=== PATIENT | female | born 1990 | race Caucasian/White ===

== ENCOUNTER → 2017-10-06 | Outpatient (CLI) | payer OTHER ==
[~2017-10-06] MED LIST: OXYC-57 PO; PRENCAP38 PO
== END | disposition home or self-care (01) ==
LOC: C.LABSPEC 17:13
PROVIDERS: ATTEND Obstetrics & Gynecology
DX: Z34.01 Encounter for supervision of normal first pregnancy, first trimester (principal)

== ENCOUNTER → 2017-10-10 | Outpatient (CLI) | payer OTHER ==
[2017-10-10 16:48] LABS: BASO % 0.2 %; BASO ABS # 0.02 K/uL (0-0.2); EOS ABS # 0.11 K/uL (0-0.5); HEMATOCRIT 36.3 % (37-47); HEMOGLOBIN 12.9 g/dL (12.0-16.0); IG# 0.04 K/uL (0.00-0.02); LYMPH % 19.6 %; LYMPH ABS # 2.15 K/uL (1.2-3.4); MEAN CELL VOLUME 91.9 fL (80-100); MEAN CORPUSCULAR HEMOGLOBIN 32.7 pg (25-34); MEAN CORPUSCULAR HGB CONC 35.5 g/dl (32-36); MEAN PLATELET VOLUME 10.5 fL (7.4-10.4); MONO % 7.7 %; MONO ABS # 0.84 K/uL (0.11-0.59); NEUT % 71.1 %; PLATELET COUNT 286 K/uL (130-400); RED CELL DISTRIBUTION WIDTH CV 12.7 % (11.5-14.5); RED CELL DISTRIBUTION WIDTH SD 43.1 fL (36.4-46.3); WHITE BLOOD COUNT 10.96 K/uL (4.8-10.8)
== END | disposition home or self-care (01) ==
LOC: C.LAB1850 15:28
PROVIDERS: ATTEND Obstetrics & Gynecology
DX: Z34.01 Encounter for supervision of normal first pregnancy, first trimester (principal)

== ENCOUNTER → 2017-10-10 | Outpatient (CLI) | payer OTHER | END | disposition home or self-care (01) | LOC: C.PAPS 09:28 | PROVIDERS: ATTEND Obstetrics & Gynecology | DX: Z12.4 Encounter for screening for malignant neoplasm of cervix (principal); R87.619 Unspecified abnormal cytological findings in specimens from cervix uteri ==

== ENCOUNTER → 2017-11-23 | Outpatient (CLI) | payer OTHER | END | disposition home or self-care (01) | LOC: C.LAB 17:25 | PROVIDERS: ATTEND Obstetrics & Gynecology | DX: Z34.02 Encounter for supervision of normal first pregnancy, second trimester (principal) ==

== ENCOUNTER 2020-04-16 23:41 | Inpatient (IN) ==
[2020-04-17] MEDS ORDERED: OXYTOCIN 30 UNITS/500 ML BAG IV PRN ×2 (00:10→02:55)
--- NOTE | 2020-04-17 00:21 | History & Physical Report ---
Date of Service April 17, 2020 Assessment & Plan (1) membranes, spontaneous rupture: IUP at 40 weeks with SPROM and spontaneous onset of contractions. Patient wishes to Type & screen ordered will want epidural when more active History of Present Illness Primary Care Provider: Nba Almeida MD Patient is a 30 yo EDC 04/16/20 who presents with leaking fluid intermittently since 1999 tonight. some contractions but not regular yet. GBS negative, blood type O positive. complicated by prior for arrest of descent after pushing for 2+ hours. Allergies Allergy/AdvReac Type Severity Reaction Status Date / Time No Known Allergies Allergy Verified 04/14/20 12:18 Home Medications Home Medications Medication Instructions Recorded Confirmed Type prenat.vits,jeff,tnd-[id number]-[id number] 1 tab PO DAILY 10/17/19 04/14/20 History Patient History Medical History History of chicken pox Surgical History S/P section Family History Son Heart murmur Social History Preferred Language: Nepali Communication Ability: Effective Jazz Musician Required: No Beliefs That Will Affect Care: None marital status: marital status details: Rich Gutierrez (26) [phone] Current Living Situation: Family Current Living Situation Comment: lives with spouse, son, no pets current occupational status: unemployed current occupation: homemaker Other Information That Helps Us Care for You: No Feels Safe at Home: Yes Safety Concerns: Feels Safe At This Time Smoking Status: Never smoker Hx Alcohol Use: No Hx Substance Use: No Review of Systems All systems reviewed & are unremarkable except as noted in HPI & below Physical Exam Constitutional: WD/WN, vitals as above Respiratory: normal respiratory effort, lungs clear to auscultation Cardiovascular: RRR, no murmur, no edema Gastrointestinal (Abdomen): normal bowel sounds, soft, nontender, no hepatosplenomegaly Psychiatric: A+Ox3, euthymic affect Genitourinary: OB Exam Abdomen: + vertex and + irregular contractions Manual OB Exam: + cervical dilation 3 cm, + cervical effacement 50%, + station high (-3) and + amniotic fluid clear, nitrazine positive and ferning present OB Exam Monitor Tracing: + external FHT monitor used, + external uterine monitor used, + category I and + normal FHT variability Results & Data ([facility]) Vital Signs (Past 12 Hours) Vital Signs Temp Pulse Resp BP 04/16/20 23:51 97.3 F L 86 18 133/72 Coding Level of Care Code None Diagnoses membranes, spontaneous rupture
[2020-04-17 00:40] LABS: Hematocrit (blood only) 35.6 % (37-47); Mean Corpuscular Hemoglobin 31.3 pg (25-34); Mean Platelet Volume 11.6 fL (7.4-10.4); Platelet Count 212 K/uL (130-400); RDW Coefficient of Variation 13.4 % (11.5-14.5); RDW Standard Deviation 44.8 fL (36.4-46.3); Red Blood Count 3.83 M/uL (4.2-5.4); White Blood Count 13.54 K/uL (4.8-10.8)
[2020-04-17 00:42] LABS: Mean Corpuscular Hgb Conc 33.7 g/dL (32-36)
[2020-04-17] MEDS: LACTATED RINGER'S 1,000 ML IV PRN ×2 (06:05→10:25)
--- NOTE | 2020-04-17 09:27 | Labor Progress Brief Note ---
Date of Service April 17, 2020 Subjective Reason For Note: Routine Evaluation feeling contractions Assessment & Plan (1) Previous delivery affecting , antepartum: (2) Desires (vaginal after ) trial: fhts categ 1. not much pressure against cx with ctx. probably needs more pitocin, pit at 9 right now. discussed use of iupc and benefits. to consider with next evaluation if exam still suggests not enough power of labor. Admission and Anticipated Discharge Date Admission Date: April 17, 2020 Physical Exam Constitutional: WD/WN, vitals as above Neurologic: grossly normal Genitourinary: Manual OB Exam: + cervical dilation 7 cm, + cervical effacement 50% and + station high OB Exam Monitor Tracing: + external FHT monitor used (130 mod variability), + external uterine monitor used (q2-3) and + category I Results & Data ([facility]) Vital Signs (Past 12 Hours) Vital Signs Temp Pulse Resp BP 04/17/20 09:00 16 04/17/20 08:30 16 04/17/20 08:28 74 131/88 04/17/20 07:11 98.1 F 16 04/17/20 03:35 82 114/75 04/17/20 02:05 98.1 F 18 04/16/20 23:51 97.3 F L 86 18 133/72 Coding Level of Care Code None Diagnoses Previous delivery affecting , antepartum O34.219 Desires (vaginal after ) trial O34.219
[2020-04-17] MEDS ORDERED: BUPIVACAINE 0.25% 30 ML VIAL ONE (09:57)
[2020-04-17] MEDS ORDERED: ePHEDrine sulfate 50 MG/ML AMP ONE (09:57)
[2020-04-17] MEDS ORDERED: fentaNYL 2MCG/ML ROPIV 1.25MG/ML 100 ML BAG EPI ONE (09:57)
[2020-04-17] MEDS ORDERED: fentaNYL citrate 100 MCG/2 ML VIAL ONE ×3 (09:57→12:29)
[2020-04-17] MEDS ORDERED: DiphenhydrAMINE HCL 50 MG/ML VIAL IV PRN ×2 (10:25→12:23)
[2020-04-17] MEDS ORDERED: ONDANSETRON INJ 2 MG/ML 2 ML VIAL IV PRN ×2 (10:25→12:23)
[2020-04-17] MEDS ORDERED: NALOXONE HCL 0.4 MG/1 ML VIAL/CARP IV PRN ×2 (10:25→12:23)
[2020-04-17] MEDS ORDERED: NALOXONE HCL 1 MG in SODIUM CHLORIDE 0.9% 1000ML 1,000 ML IV PRN ×2 (10:25→12:23)
[2020-04-17] MEDS ORDERED: ePHEDrine sulfate 50 MG/ML AMP IV PRN ×2 (10:25→12:23)
[2020-04-17] MEDS ORDERED: fentaNYL 2MCG/ML ROPIV 1.25MG/ML 100 ML BAG EPI PRN (10:25)
--- NOTE | 2020-04-17 10:29 | Anesthesiology Consultation ---
Date of Service April 17, 2020 Covid 19 negative on 04/10/20. Assessment & Plan Chart Review Chart Review: Patient NOT seen in Pre Admission Testing and Acceptable Risk for Labor Epidural Consults Requested none ASA ASA2 Proposed Anesthesia Anesthesia Type: Labor Epidural and CSE Risk / Benefits Reviewed With: PT / POA / Parent / Guardian, Accepts Plan and Informed Consent Obtained History Height/Weight Height: 5 ft 4 in Weight: 83.915 kg Allergies Allergy/AdvReac Type Severity Reaction Status Date / Time No Known Allergies Allergy Verified 04/14/20 12:18 Medications Home Medications Medication Instructions Recorded Confirmed Last Taken prenat.vits,jeff,mto-pjgu-tkacj 1 tab PO DAILY 10/17/19 04/17/20 04/16/20 Active Medications Generic Name Dose Route Start Last Admin Trade Name Freq PRN Reason Stop Dose Admin Lactated Ringer's 1,000 mls @ 125 mls/hr 04/17/20 00:10 04/17/20 10:25 Lr IV 04/19/20 00:09 999 mls/hr .Q8H PRN Administration L&D Protocol Protocol Oxytocin 30 units in 500 mls @ 0 mls/hr 04/17/20 02:55 04/17/20 10:04 Pitocin IV 04/19/20 02:54 0 units/hr .Q0M PRN 0 mls/hr Labor Induction/Augmentation Titration Protocol 0 UNITS/HR NPO Date Last Intake of Fluids: 04/17/20 Time Last Intake of Fluids: 09:00 Date Last Intake of Solids: 04/16/20 Time Last Intake of Solids: 23:00 Past Medical History Medical History History of chicken pox Exercise / Class Metabolic Activity II 4-5 Yardwork/Stairs/Walk up hill Past Family History Family History Son Heart murmur Past Surgical History Surgical History S/P section Past Anesthesia History No Hx of Anesthesia Complications and No Family Hx of Anesthesia Complications History of PONV No Hx of PONV and History of PONV Social History Smoking Status: Never smoker Hx Alcohol Use: No Hx Substance Use: No Review of Systems no chest pain or sob Physical Exam Vital Signs Last Vital Signs Temp 36.9 C 04/17/20 09:30 Pulse 81 04/17/20 10:21 Resp 18 04/17/20 09:30 BP 117/69 04/17/20 09:31 Pulse Ox 100 04/17/20 10:21 ENMT Mouth: no TMJ abnormality Thyromental Distance: > or= 3.5 Finger Breadths Mallampati Class: II Neck normal visual inspection Respiratory normal respiratory effort Auscultation: lungs clear to auscultation bilaterally Cardiovascular Rate/Rhythm: regular rate and regular rhythm Musculoskeletal Spine: normal cervical ROM Neurologic moves all extremities Psychiatric Orientation: alert and oriented x 3 Testing Laboratory Results 04/17/20 00:25 Blood Type O Positive 04/17/20 00:25 Antibody Screen NEGATIVE 04/17/20 00:25
--- NOTE | 2020-04-17 10:55 | Labor Progress Brief Note ---
Date of Service April 17, 2020 Subjective Reason For Note: Monitor Concern candidate and variables noted. pt feels pain with ctx Assessment & Plan (1) Desires (vaginal after ) trial: (2) Previous delivery affecting , antepartum: pit off, fhts improved. position change. will watch and consider options to restart pit after at least 30min. pt made aware fetus quite high. pit was at 11, no power of fetus in pelvis. will plan to have reevaluation of status after at least 30min, given her pain, will plan epidural, call anesth Admission and Anticipated Discharge Date Admission Date: April 17, 2020 Physical Exam Constitutional: WD/WN, vitals as above Genitourinary: Manual OB Exam: + cervical dilation (no change), + cervical effacement 50% and + station high OB Exam Monitor Tracing: + external FHT monitor used (not traced well), + scalp electrode used (fhts 130s), + external uterine monitor used (q2-3, pit turned off due to decels), + category II, + normal FHT variability and + variable decelerations Results & Data ([facility]) Vital Signs (Past 12 Hours) Vital Signs Temp Pulse Resp BP Pulse Ox 04/17/20 10:48 83 127/86 04/17/20 10:46 92 H 138/97 100 04/17/20 10:45 76 136/90 04/17/20 10:41 80 100 04/17/20 10:38 76 137/85 04/17/20 10:36 78 100 04/17/20 10:31 109 H 100 04/17/20 10:26 89 99 04/17/20 10:21 81 100 04/17/20 10:16 76 99 04/17/20 10:11 83 98 04/17/20 10:06 85 98 04/17/20 09:31 73 117/69 04/17/20 09:30 98.4 F 18 04/17/20 09:29 74 122/67 04/17/20 09:00 16 04/17/20 08:30 16 04/17/20 08:28 74 131/88 04/17/20 07:11 98.1 F 16 04/17/20 03:35 82 114/75 04/17/20 02:05 98.1 F 18 04/16/20 23:51 97.3 F L 86 18 133/72 Coding Level of Care Code None Diagnoses Desires (vaginal after ) trial O34.219 Previous delivery affecting , antepartum O34.219
[2020-04-17] MEDS ORDERED: LIDOCAINE/EPINEPHRINE 2% 1:200,000 20 ML SDV ONE (11:44)
[2020-04-17] MEDS ORDERED: PROPOFOL IV EMULSION 10 MG/ML 20 ML VIAL IV ONE (11:48)
[2020-04-17] MEDS ORDERED: OXYTOCIN 10 UNITS/ML VIAL ONE ×3 (11:48→12:40)
[2020-04-17] MEDS ORDERED: ONDANSETRON INJ 2 MG/ML 2 ML VIAL ONE (11:48)
[2020-04-17] MEDS ORDERED: SUCCINYLCHOLINE 100MG/5ML SYR IV ONE (11:48)
[2020-04-17] MEDS ORDERED: SODIUM CHLORIDE 0.9% 250 ML IV PRN (12:04)
[2020-04-17] MEDS ORDERED: MoRPHine SULFATE PF 1 MG/ML 10 ML AMP/VIAL ONE (12:10)
[2020-04-17] MEDS ORDERED: NALOXONE HCL 0.08 MG in SYRINGE 1.8 ML IV PRN (12:23)
[2020-04-17] MEDS ORDERED: MoRPHine SULFATE 2 MG/ML CARP IV PRN (12:23)
[2020-04-17] MEDS ORDERED: MoRPHine SULFATE PF 1 MG/ML 10 ML AMP/VIAL EPI ONE (12:23)
[2020-04-17] MEDS ORDERED: LACTATED RINGER'S 500 ML IV PRN (12:23)
[2020-04-17] MEDS ORDERED: HYDROmorphone INJ 0.5 MG/0.5 ML SYR IV PRN (12:23)
[2020-04-17] MEDS ORDERED: NO NARCOTICS OR SEDATIVES SCH (12:30)
[2020-04-17] MEDS ORDERED: DC INTRASPINAL MORPHINE SCH (12:30)
[2020-04-17] MEDS ORDERED: SODIUM CHLORIDE 0.9% 1000ML 1,000 ML IV SCH (12:30)
[2020-04-17] MEDS ORDERED: CEFAZOLIN 2000MG 2,000 MG/15 ML SYR IV ONE (12:31)
[2020-04-17] MEDS ORDERED: TERBUTALINE SULFATE 1 MG/ML VIAL SQ ONE (12:48)
--- NOTE | 2020-04-17 12:50 | Post Operative Brief Note ---
PG Immediate Post Op with CF Date of Surgery April 17, 2020 Pre & Post Diagnosis Operation Date: 04/17/20 13:00 Pre-Op Diagnosis: 1. Prior section, desires 2. 40 weeks iup 3. Intermittent deep variable decelerations Post-Op Diagnosis: same I identified the patient and participated in the time-out.: Yes Procedure Operation Date: 04/17/20 13:00 Actual Procedures Emergency Vertical Section Surgeon Chasidy Mike MD, FACOG Dough Sheeter RN, Dr. Gonzalez Estimated Blood Loss 800 Findings Consistent with Post-Op Diagnosis (viable male, apgars 8,9, uterus lower segment and bladder adhered to anterior abdominal wall. after fetus delivered, apparent was adhered at level of mid uterus, normal ovaries and tubes bilaterally) Fluids 1800 Specimens Specimen Description: A. placenta (examine) B. cord blood gases (arterial and venous) Drains Gutierrez Catheter Anesthesia Type Labor Epidural Complications none Disposition Accompanied Patient To Recovery: No Disposition: Recovery Room
--- NOTE | 2020-04-17 13:12 | Anesthesia Procedure Note ---
Date of Service April 17, 2020 Anesthesia Post Epidural Note Vital Signs Vital Signs: Temp Pulse Resp BP Pulse Ox 36.9 C 90 16 127/84 100 04/17/20 09:30 04/17/20 11:41 04/17/20 11:30 04/17/20 11:38 04/17/20 11:41 Pain Intensity Abdomen: Pain Intensity: 0 Notes Mental Status: alert / awake / arousable Patient Amnestic to Procedure: No Nausea / Vomiting: adequately controlled Pain: adequately controlled Airway Patency, RR, SpO2: stable & adequate BP & HR: stable & adequate Hydration State: stable & adequate Neuraxial Anesthesia: was administered and sensory block is resolving Anesthetic Complications: no major complications apparent and Pt Satisfied with anesthetic care Epidural: Removed without complications and With tip intact
--- NOTE | 2020-04-17 13:23 | Operative Report ---
PG Post Operative Report Pre & Post Diagnosis Operation Date: 04/17/20 13:00 Pre-Op Diagnosis: 1. 40 week iup 2. Spontaneous rupture of membranes 3. Prior section, desires trial 4. Recurrent variable decels, remote from delivery Post-Op Diagnosis: 1. Same 2. Severe dense pelvic adhesions. I identified the patient and participated in the time-out.: Yes Procedure Operation Date: 04/17/20 13:00 Actual Procedures Emergency Vertical Section Surgeon Chasidy Mike MD, FACOG Toddler Guide RN, Dr. Gonzalez Estimated Blood Loss 800 Findings Consistent with Post-Op Diagnosis (viable male fetus, apgars 8,9, uterus adhered to anterior abdominal wall, postdelivery and contraction of uterus, the level of adhesions was actually at mid uterus, dense peritoneal adhesions to lateral ochoa at level of anterior abdominal wall adhesions. ) dense of adhesions were miduterus and uterus rotated. ultimately no evidence of uterine scar dehiscense at lower uterine segment. ultimately hysterotomy was diagonal(partly vertical and partly transverse) but positioned in mid uterus. Fluids 1800 Specimens placenta and cord gases Drains varghese Anesthesia Type Labor Epidural Complications none Disposition Accompanied Patient To Recovery: No Disposition: Recovery Room Indications 30yo at 40wks cookie presented to L&D overnight with cc of spontaneous rupture of membranes and early labor. She had a prior LTCS and was a candidate. She did have spontaneous contractions but they were intermittent and cephalic was high. She was counseled re:use of pitocin augmentation and agreed. Her labor was progressing however station was high and effacement 50% and concern about whether adequate labor being given with pitocin with consideration of iupc. Sooner than that plan could be execute, deep intermittent variable decelerations of the heart rate began, with need to stop pitocin and initial improvement with position change. The patient persisted to have painful contractions and requested epidural pain management. At that time variabilty was good and fetus with spontaneous accelerations and no decelertions. As she continued in labor, deep intermittent variable decelerations persisted and concern raised regarding integrity of prior uterine scar. Counseled regarding recommendations for section and given more contractions with more decelerations, sq terbutaline given as patient readied for OR, determined to be emergency, with laboring patient with uterine scar and decelerations of heart tones. Description of Procedure The patient was taken to the operating room and identified. She was placed in the supine position with a leftward tilt on the operating table and prepped and draped in the usual sterile fashion. A varghese catheter had already been placed. Her anesthesia level was checked and was adequate. The knife was used to create a Pfannensteil skin incision that was carried down to the underlying layer of fascia. The fascia was nicked in the midline and this opening was extended laterally using Amezcua scissors. Melissa clamps were placed on the superior and inferior aspect of the fascial incision tenting it upward and the underlying rectus muscles were dissected off the overlying fascia both sharply and bluntly using Amezcua scissors. The rectus muscles were bluntly in the midline. The peritoneum was elevated with two hemostats and sharply entered into with care using a metzenbaum scissor. This opening was extended superiorly but dense adhesions beneath this opening encountered. Bovie cautery used to release lateral aspects of dense adhesions on each side with no suspicion to involve bladder. The bladder blade was placed to retract tissue suspected to be dense adhesions involving the bladder. The uterus was palpated in abdomen. Due to the adhesions the decision was made to proceed with vertical hysterotomy. The knife was used to create a hysterotomy and this opening was stretched. Immediately the anterior placenta was encountered. A arm came through the hysterotomy and was gently replaced. The operators hand was placed through the hysterotomy in an attempt to reach the cephalic but elevation of the cephalic to the hysterotomy was not possible. This was abandoned and decision made to extend the vertical incision further toward fundus made and achieved with bandage scissors. The feet were grasped and the fetus was delivered as footling breech. cried at . The cord was clamped and cut and the infant was handed off to the awaiting pediatricians. Cord gases were obtained. The placenta had already been delivered. The uterus was exteriorized and cleared of all clots and debris. Dilute IV Pitocin was begun. The uterine tone was improving. The hysterotomy was closed in 2 layers in a running interlocking fashion using 0 Vicryl followed by a serosal reapproximating stich of 0 Vicryl in a baseball type fashion. The hysterotomy was not hemostatic and additional figure of eight sutures of 2-0 vicryl were placed and hemostasis improved. The pelvis was irrigated. The uterus was returned to the abdomen. The gutters were cleared of all clots and debris. The hysterotomy was reinspected and noted to be hemostatic, notation as above made for location of the hysterotomy. The lower uterine segment was smooth and the bladder was low. The fascia was then closed in running fashion using 0 Vicryl. The subcutaneous fat was copiously irrigated and reapproximated using 2-0 chromic. The skin was closed in a subcuticular fashion using 4-0 Vicryl. At this point the procedure was terminated. The patient was transferred to the recovery room in stable condition. All sponge, lap and needle counts are correct x2. I attest to the content of the Intraoperative Record and any orders documented therein. Any exceptions are noted below.
[2020-04-17 13:27] LABS: Base Excess Cord Arterial Bld -3.2 mEq/L (-9-1.8); Base Excess Cord Venous Blood -3.7 mEq/L (-7.7-1.9); CO2 Cord Arterial Blood 52 mmHg (39.1-73.5); Cord Venous Blood HCO3 24 mmol/L (18.4-26.8); Cord Venous Blood PCO2 54 mmHg (30.4-57.2); Cord Venous Blood PO2 25 mmHg (14.1-43.3); Cord Venous Blood pH 7.27 (7.20-7.44); HCO3 Cord Arterial Blood 24 mmol/L (19.7-28.5); O2 Saturation Cord Venous Bld < 60.0 % (<68); Oxygen Sat Cord Arterial Blood < 60.0 % (<60); PO2 Cord Arterial Blood 29 mmHg (4.1-31.7); pH Cord Arterial Blood 7.29 (7.1-7.38)
--- NOTE | 2020-04-17 15:34 | Anesthesiology Progress Note ---
Date of Service April 17, 2020 Anesthesia Post Procedure Vital Signs Vital Signs: Temp Pulse Pulse Resp BP BP Pulse Ox 04/17/20 14:15 36.6 C 89 14 123/78 100 04/17/20 14:00 85 12 112/74 98 04/17/20 13:50 97 H 12 107/69 97 04/17/20 13:40 100 H 14 109/63 96 04/17/20 13:30 87 10 L 103/72 96 04/17/20 13:20 36.3 C L 88 14 103/70 96 04/17/20 13:10 82 12 115/70 99 04/17/20 13:00 93 H 12 115/74 100 04/17/20 12:52 36.0 C L 105 H 16 91/70 L 100 04/17/20 11:41 90 100 04/17/20 11:38 86 127/84 04/17/20 11:36 82 100 04/17/20 11:31 81 100 04/17/20 11:30 16 04/17/20 11:28 74 106/63 04/17/20 11:26 74 100 04/17/20 11:21 76 100 04/17/20 11:18 81 114/78 04/17/20 11:16 82 100 04/17/20 11:11 74 100 04/17/20 11:08 71 127/80 04/17/20 11:06 77 100 04/17/20 11:01 75 100 04/17/20 10:56 73 110/63 100 04/17/20 10:54 71 108/60 04/17/20 10:52 91 H 127/87 04/17/20 10:51 77 100 04/17/20 10:50 83 129/86 04/17/20 10:48 83 127/86 04/17/20 10:46 92 H 138/97 100 04/17/20 10:45 76 136/90 04/17/20 10:41 80 100 04/17/20 10:38 76 137/85 04/17/20 10:36 78 100 04/17/20 10:31 109 H 100 04/17/20 10:26 89 99 04/17/20 10:21 81 100 04/17/20 10:16 76 99 04/17/20 10:11 83 98 04/17/20 10:06 85 98 07/17/20 09:31 73 117/69 04/17/20 09:30 36.9 C 18 04/17/20 09:29 74 122/67 04/17/20 09:00 16 04/17/20 08:30 16 04/17/20 08:28 74 131/88 04/17/20 07:11 36.7 C 04/17/20 03:35 82 114/75 04/17/20 02:05 36.7 C 04/16/20 23:51 36.3 C L 86 18 133/72 Pain Intensity Abdomen: Pain Intensity: 0 Notes Mental Status: alert / awake / arousable and participated in evaluation Patient Amnestic to Procedure: No Nausea / Vomiting: adequately controlled Pain: adequately controlled Airway Patency, RR, SpO2: stable & adequate BP & HR: stable & adequate Hydration State: stable & adequate Neuraxial Anesthesia: was administered and sensory block is resolving Anesthetic Complications: no major complications apparent and Pt Satisfied with anesthetic care
[2020-04-17] MEDS: OXYTOCIN 30 UNITS in LACTATED RINGER'S 1,000 ML IV SCH ×2 (15:53→23:53)
[2020-04-17] MEDS: KETOROLAC 30 MG/ML VIAL IV PRN ×2 (16:10→23:52)
[2020-04-18] MEDS ORDERED: DIPHTHERIA/TETANUS/PERTUSSIS 0.5 ML SYR/VIAL IM ONE (04:10)
[2020-04-18] MEDS ORDERED: SUPERCREAM 0.870% 15 GM JAR EXT PRN (04:10)
[2020-04-18] MEDS ORDERED: MAGNESIUM HYDROXIDE SUSP 30 ML UDC PO PRN (04:10)
[2020-04-18] MEDS ORDERED: BENZOCAINE 20% AER SPR 82.5 GM CAN EXT PRN (04:10)
[2020-04-18] MEDS ORDERED: HYDROCORTISONE ACETATE 25 MG SUPP PR PRN (04:10)
[2020-04-18] MEDS ORDERED: LACTATED RINGER'S 1,000 ML IV SCH (04:15)
[2020-04-18] MEDS: KETOROLAC 30 MG/ML VIAL IV PRN (05:46)
[2020-04-18] MEDS ORDERED: PROMETHAZINE HCL 25 MG in SODIUM CHLORIDE 0.9% 50 ML IV PRN (06:24)
[2020-04-18] MEDS ORDERED: ONDANSETRON INJ 2 MG/ML 2 ML VIAL IV PRN (06:24)
[2020-04-18] MEDS ORDERED: DiphenhydrAMINE HCL 50 MG/ML VIAL IV PRN (06:24)
--- NOTE | 2020-04-18 06:33 | Obstetrical Progress Note ---
Date of Service <Rusty Hernandez MD - Last Filed: 04/18/20 06:49> April 18, 2020 Assessment & Plan <Rusty Hernandez MD - Last Filed: 04/18/20 06:49> (1) : - Feels well today. Eating well. - Ambulate as tolerated. - Pain well controlled with analgesics. - Routine postop care - After discharge will have 6 week followup Subjective <Rusty Hernandez MD - Last Filed: 04/18/20 06:49> Luz is a 30 y/o female ; POD #1 following delivery at 39+ weeks; doing well this morning; moderate abdominal cramping & 5/10 pain well managed on analgesics; Gutierrez catheter is still in place with normal urine; tolerating meals overnight. Has some persistent spotting with some improvement this morning. Review of Systems Constitutional: denies fever, chills, sweat, headache Respiratory: denies shortness of breath, difficulty breathing Cardiac: denies chest pain, palpitations, chest pressure Breast: denies breast pain : denies dysuria Physical Exam <Rusty Hernandez MD - Last Filed: 04/18/20 06:49> General: Alert, oriented. No acute distress. Cardiac: Regular rate and rhythm, no murmurs/rubs/gallops. Respiratory: Clear to auscultation bilaterally a/p, no wheezes/rales/rhonchi. No increased work of breathing. Symmetrical chest rise. No respiratory distress. Abdomen: Soft, nontender, nondistended. Bowel sounds present. Uterus: Uterine fundus firm, palpable 1cm below umbilicus. Surgical scar clean and healing well. Lower Extremities: No lower extremity edema or swelling. No deep calf pain. Stefani's negative bilaterally. Results & Data <Rusty Hernandez MD - Last Filed: 04/18/20 06:49> Vital Signs (Past 12 Hours) Vital Signs Temp Pulse Resp BP Pulse Ox 04/18/20 05:40 16 96 04/18/20 03:59 14 96 04/18/20 03:05 36.8 C 88 16 110/72 96 04/18/20 02:06 16 96 04/18/20 01:15 16 95 04/18/20 00:20 16 99 04/17/20 23:40 36.8 C 89 16 104/68 99 04/17/20 23:11 16 98 04/17/20 22:30 16 97 04/17/20 22:10 16 99 04/17/20 21:15 16 99 04/17/20 20:00 16 100 04/17/20 19:40 36.9 C 83 16 121/74 100 04/17/20 19:15 18 100 <Cheli Gonzalez DO - Last Filed: 04/18/20 08:02> Co-Signing Physician Notes Resident Physician Supervision Note: I was present with Dr. Carbajal during the history and exam. I discussed the case with the resident and agree with the findings and plan as documented in the note. Any exceptions or clarifications are listed here: POD#1 doing well. No concerns. Documented By: Cheli Gonzalez DO Resident Activity Tracking <Rusty Hernandez MD - Last Filed: 04/18/20 06:49> Resident Involvement: Resident Care Provided Care Provided: OB Delivery
[2020-04-18 07:59] LABS: Basophils # (auto) 0.02 K/uL (0-0.2); Basophils % (auto) 0.1 %; Eosinophils % (auto) 1.4 %; Hematocrit (blood only) 30.5 % (37-47); Hemoglobin 10.2 g/dL (12.0-16.0); Immature Granulocytes # (auto) 0.06 K/uL (0.00-0.02); Immature Granulocytes % (auto) 0.4 %; Lymphocytes # (auto) 1.62 K/uL (1.2-3.4); Lymphocytes % (auto) 11.7 %; Mean Corpuscular Hemoglobin 31.6 pg (25-34); Mean Corpuscular Hgb Conc 33.4 g/dL (32-36); Mean Corpuscular Volume 94.4 fL (80-100); Mean Platelet Volume 10.8 fL (7.4-10.4); Monocytes # (auto) 1.04 K/uL (0.11-0.59); Monocytes % (auto) 7.5 %; Neutrophils # (auto) 10.94 K/uL (1.4-6.5); Neutrophils % (auto) 78.9 %; Platelet Count 178 K/uL (130-400); RDW Coefficient of Variation 13.8 % (11.5-14.5); RDW Standard Deviation 47.8 fL (36.4-46.3); Red Blood Count 3.23 M/uL (4.2-5.4); White Blood Count 13.88 K/uL (4.8-10.8)
[2020-04-18] MEDS: PRENATAL VITAMIN 1 TAB PO SCH (08:44)
[2020-04-18] MEDS: FERROUS SULFATE 325 MG TAB PO SCH (08:44)
[2020-04-18] MEDS: OXYCODONE/ACETAMINOPHEN 5mg/325mg TAB PO PRN ×3 (08:44→23:12)
[2020-04-18] MEDS: DOCUSATE SODIUM 100 MG CAP PO SCH ×2 (08:44→20:26)
--- NOTE | 2020-04-18 10:52 | Anesthesiology Progress Note ---
Date of Service April 18, 2020 Anesthesia Post Procedure Vital Signs Vital Signs: Temp Pulse Pulse Pulse Resp BP BP 04/18/20 06:20 16 04/18/20 05:40 16 04/18/20 03:59 14 04/18/20 03:05 36.8 C 88 16 110/72 04/18/20 02:06 16 04/18/20 01:15 16 04/18/20 00:20 16 04/17/20 23:40 36.8 C 89 16 104/68 04/17/20 23:11 16 04/17/20 22:30 16 04/17/20 22:10 16 04/17/20 21:15 16 04/17/20 20:00 16 04/17/20 19:40 36.9 C 83 16 121/74 04/17/20 19:15 18 04/17/20 18:00 20 04/17/20 17:00 36.6 C 89 20 109/72 04/17/20 16:00 36.9 C 86 18 117/76 04/17/20 15:15 36.6 C 82 18 121/78 04/17/20 14:15 36.6 C 89 14 123/78 04/17/20 14:00 85 12 112/74 04/17/20 13:50 97 H 12 107/69 04/17/20 13:40 100 H 14 109/63 04/17/20 13:30 87 10 L 103/72 04/17/20 13:20 36.3 C L 88 14 103/70 04/17/20 13:10 82 12 115/70 04/17/20 13:00 93 H 12 115/74 04/17/20 12:52 36.0 C L 105 H 16 91/70 L 04/17/20 11:41 90 04/17/20 11:38 86 127/84 04/17/20 11:36 82 04/17/20 11:31 81 04/17/20 11:30 16 04/17/20 11:28 74 106/63 04/17/20 11:26 74 04/17/20 11:21 76 04/17/20 11:18 81 114/78 04/17/20 11:16 82 04/17/20 11:11 74 04/17/20 11:08 71 127/80 04/17/20 11:06 77 07/17/20 11:01 75 04/17/20 10:56 73 110/63 04/17/20 10:54 71 108/60 Pulse Ox 04/18/20 06:20 96 04/18/20 05:40 96 04/18/20 03:59 96 04/18/20 03:05 96 04/18/20 02:06 96 04/18/20 01:15 95 04/18/20 00:20 99 04/17/20 23:40 99 04/17/20 23:11 98 04/17/20 22:30 97 04/17/20 22:10 99 04/17/20 21:15 99 04/17/20 20:00 100 04/17/20 19:40 100 04/17/20 19:15 100 04/17/20 18:00 99 04/17/20 17:00 99 04/17/20 16:00 100 04/17/20 15:15 100 04/17/20 14:15 100 04/17/20 14:00 98 04/17/20 13:50 97 04/17/20 13:40 96 04/17/20 13:30 96 04/17/20 13:20 96 04/17/20 13:10 99 04/17/20 13:00 100 04/17/20 12:52 100 04/17/20 11:41 100 04/17/20 11:38 04/17/20 11:36 100 04/17/20 11:31 100 04/17/20 11:30 04/17/20 11:28 04/17/20 11:26 100 04/17/20 11:21 100 04/17/20 11:18 04/17/20 11:16 100 04/17/20 11:11 100 04/17/20 11:08 04/17/20 11:06 100 04/17/20 11:01 100 04/17/20 10:56 100 04/17/20 10:54 Pain Intensity Abdomen: Pain Intensity: 3 Transfer of Care Handoff Completed per policy Notes Mental Status: alert / awake / arousable Patient Amnestic to Procedure: Yes Nausea / Vomiting: adequately controlled Pain: adequately controlled Airway Patency, RR, SpO2: stable & adequate BP & HR: stable & adequate Hydration State: stable & adequate Neuraxial Anesthesia: was administered and sensory block resolved Anesthetic Complications: no major complications apparent and Pt Satisfied with anesthetic care
[2020-04-18] MEDS: IBUPROFEN 600 MG TAB PO PRN ×2 (14:05→23:12)
[2020-04-19 06:07] LABS: Hematocrit (blood only) 25.8 % (37-47); Hemoglobin 8.7 g/dL (12.0-16.0)
[2020-04-19] MEDS: FERROUS SULFATE 325 MG TAB PO SCH (08:34)
[2020-04-19] MEDS: PRENATAL VITAMIN 1 TAB PO SCH (08:34)
[2020-04-19] MEDS: DOCUSATE SODIUM 100 MG CAP PO SCH (08:34)
--- NOTE | 2020-04-19 08:36 | Obstetrical Progress Note ---
Date of Service April 19, 2020 Assessment & Plan (1) examination following delivery: stable for d/c home, instructions reviewed. reviewed circumstances at delivery and findings. f/u 6wks pp check. checked on pa pdmp and no issues identified. Subjective Ambulation: ambulating normally Voiding: no voiding problems Passing Gas:: Yes Diet Tolerance:: regular diet Lochia:: Small Feeding Type:: breast feeding no pain issues Physical Exam Constitutional WD/WN, vitals as above Respiratory normal respiratory effort, lungs clear to auscultation Cardiovascular Rate/Rhythm: regular rate and regular rhythm Gastrointestinal (Abdomen) Inspection/Auscultation: abdomen normal to inspection and + abdominal surgical incision (c/d/i, dermabond, bruising on mons pubis) Percussion/Palpation: abdomen soft Fundus firm 2cm down Musculoskeletal nt calves no edema Neurologic grossly normal Psychiatric A+Ox3, euthymic affect Results & Data ([facility]) Vital Signs (Past 12 Hours) Vital Signs Temp Pulse Pulse Resp BP Pulse Ox 04/18/20 23:40 98.4 F 90 16 113/71 04/18/20 21:02 97.7 F 96 H 16 112/76 99
[2020-04-19] MEDS: IBUPROFEN 600 MG TAB PO PRN (13:34)
[2020-04-19] MEDS: OXYCODONE/ACETAMINOPHEN 5mg/325mg TAB PO PRN (13:34)
[2020-04-19] MEDS ORDERED: bisacodyL 5 MG TABEC PO SCH (20:00)
--- NOTE | 2020-04-24 15:05 | Discharge Summary ---
Date of Service Day of admission: 04/17/20 Day of discharge : April 19, 2020 Admission HPI Per Admitting Provider Admission diagnoses: term , SROM, labor, prior section- desires trial, recurrent variable decelerations remote from delivery Discharge diagnoses: same Discharge Data Consultations 04/17/20 00:10 Consult Anesthesiology Stat Procedures Performed Operation Date: 04/17/20 13:00 Repeat Vertical Section Hospital Course (1) Previous delivery affecting , antepartum: (2) Desires (vaginal after ) trial: (3) membranes, spontaneous rupture: (4) Abnormal heart rate or rhythm affecting management of mother: Patient came in with spontaneous rupture of membranes with labor. She wanted a trial. She required pitocin augmentation. Unfortunately during her labor evident that cervix was dilating but baby not coming into pelvis and recurrent variable decelerations occurred. Pitocing stopped but they persisted. Concern regarding integrity of the uterine scar led to recommendation for emergency section. Underwent procedure in main OR due to simultaneous section being done in L&D OR. Required vertical hysterotomy. EBL 800cc. Postoperative hemoglobin was 8.7. Patient's postoperative recovery and course unremarkable. On her postoperative day #2 she was tolerating a regular diet, voiding spontaneously, ambulating without problem and was using oral meds for adequate pain control. She was given written and verbal discharge instructions and told to followup in office at 6wks. She was given appropriate pain medicine prescriptions.
== END 2020-04-19 13:40 | disposition home or self-care (01) | DRG 788 ==
LOC: OPB 23:41 → 4S1 23:42 → 4S2 04-17 15:05
DX: N73.6 Female pelvic peritoneal adhesions (postinfective); O34.211 Maternal care for low transverse scar from previous cesarean delivery; O76 Abnormality in fetal heart rate and rhythm complicating labor and delivery; Z3A.40 40 weeks gestation of pregnancy; Z37.0 Single live birth